=== PATIENT | female | born 1960 | race Caucasian/White ===

== ENCOUNTER 2019-04-06 15:30 | Inpatient (IN) ==
[2019-04-06] MEDS ORDERED: ALBUT/IPRATROP 3MG/0.5MG NEB 3 ML VIAL NEB ONE (15:48)
[2019-04-06] MEDS ORDERED: methylPREDNISolone 125 MG/2 ML VIAL IV STA (15:48)
[2019-04-06 16:31] LABS: Basophils # (auto) 0.05 K/uL (0-0.2); Basophils % (auto) 0.7 %; Eosinophils # (auto) 0.14 K/uL (0-0.5); Eosinophils % (auto) 2.1 %; Hematocrit (blood only) 46.9 % (37-47); Hemoglobin 14.9 g/dL (12.0-16.0); Immature Granulocytes # (auto) 0.02 K/uL (0.00-0.02); Immature Granulocytes % (auto) 0.3 %; Lymphocytes % (auto) 28.2 %; Mean Corpuscular Hemoglobin 32.8 pg (25-34); Mean Corpuscular Hgb Conc 31.8 g/dL (32-36); Mean Corpuscular Volume 103.3 fL (80-100); Mean Platelet Volume 9.3 fL (7.4-10.4); Monocytes % (auto) 10.4 %; Neutrophils # (auto) 3.93 K/uL (1.4-6.5); Neutrophils % (auto) 58.3 %; Platelet Count 179 K/uL (130-400); RDW Coefficient of Variation 12.7 % (11.5-14.5); Red Blood Count 4.54 M/uL (4.2-5.4); White Blood Count 6.74 K/uL (4.8-10.8)
[2019-04-06 16:35] LABS: Oxygen Saturation VBG 61.9 %; pH VBG 7.27 (7.36-7.41)
[2019-04-06 16:43] LABS: Partial Thromboplastin Time 26.8 Seconds (21.0-31.0); Prothrombin Time 10.1 Seconds (9.0-12.0)
[2019-04-06 16:49] LABS: Alanine Aminotransferase 24 U/L (12-78); Albumin Level 3.6 gm/dl (3.4-5.0); Aspartate Aminotransferase 14 U/L (15-37); BUN Creatinine Ratio 11.2 (10-20); Blood Urea Nitrogen 8 mg/dl (7-18); Calcium 8.6 mg/dl (8.5-10.1); Carbon Dioxide 40 mmol/L (21-32); Chloride 92 mmol/L (98-107); Est GFR (African American) 99.5; Est GFR (Non-African American) 85.9; Glucose 90 mg/dl (70-99); Potassium 4.3 mmol/L (3.5-5.1); Sodium 134 mmol/L (136-145)
[2019-04-06 16:53] LABS: Alkaline Phosphatase 81 U/L (45-117); Bilirubin,Total 0.3 mg/dl (0.2-1); Globulin 3.6 gm/dl (2.5-4.0); Total Protein 7.2 gm/dl (6.4-8.2); Troponin I < 0.015 ng/ml (0-0.045)
[2019-04-06 17:08] LABS: Influenza A virus by PCR Neg for Influ A (Neg); Influenza B virus by PCR Neg for Influ B (Neg)
--- NOTE | 2019-04-06 17:15 | XRay Report ---
XR chest 1V portable CLINICAL HISTORY: Dyspnea COMPARISON STUDY: No previous studies for comparison. FINDINGS: The bones soft tissues and hemidiaphragms are normal. The cardiomediastinal silhouette is n ormal. The lungs are clear. The pulmonary vasculature is normal. IMPRESSION: Negative chest. The above report was generated using voice recognition software. It may contain grammatical, syntax or spelling errors. Electronically signed by: Irving Cabrera M.D. 04/06/2019 5:13 PM
[2019-04-06 17:32] LABS: Appearance Urine Clear (Clear); Bilirubin Urine Negative (Negative); Blood Urine Negative (Negative); Color Urine Yellow; Glucose Urine UA Negative (Negative); Ketones Urine Negative (Negative); Leukocyte Esterase Urine Negative (Negative); Nitrite Urine Negative (Negative); Protein Urine Negative (Negative); Specific Gravity Urine 1.009 (1.000-1.030); Urobilinogen Urine Negative (Negative); pH Urine 8.5 (4.5-7.5)
[2019-04-06] MEDS ORDERED: OPTIRAY 320 125ml IV PRN (17:47)
[2019-04-06] MEDS ORDERED: cefTRIAXone SODIUM 1,000 MG in DEXTROSE 5% 50 ML IV SCH (18:16)
--- NOTE | 2019-04-06 18:16 | CT Scan Report ---
CT angio chest dissec wo/w con CT DOSE: 612.27 mGy.cm HISTORY: Dyspnea sob, copd, hx thoracic dissection, hypoxia, cp TECHNIQUE: Multiaxial CT images of the chest, abdomen, and pelvis were performed both before and afte r the intravenous administration of contrast to evaluate the aorta. Maximal intensity projection imag es were also obtained. A dose lowering technique was utilized adhering to the principles of ALARA. COMPARISON STUDY: None. FINDINGS: Limited study in the absence of prior studies for comparison given the patient's history of dissection. Emphysematous change. Apical bleb formation bilaterally. No well-defined focal infiltrate. Aortic root measures 4 cm. No evidence for true focal aneurysm or dissection. The pulmonary vasculature enhances appropriately. May be a component of mild pulmonary arterial hyper tension. IMPRESSION: 1. No evidence for aortic dissection. 2. Maximum diameter the aortic root is 4 cm. 3. Lungs are clear. 4. Diffuse emphysematous change. The above report was generated using voice recognition software. It may contain grammatical, syntax or spelling errors. Electronically signed by: Irving Cabrera M.D. 04/06/2019 6:15 PM
[2019-04-06] MEDS ORDERED: NICOTINE 14 MG/24 HR PATCH TD PRN (20:14)
[2019-04-06] MEDS ORDERED: SODIUM CHLORIDE 0.9% 1000ML 1,000 ML IV SCH (20:14)
[2019-04-06] MEDS ORDERED: ACETAMINOPHEN 325 MG TAB PO PRN (20:14)
[2019-04-06] MEDS ORDERED: ONDANSETRON INJ 2 MG/ML 2 ML VIAL IV PRN (20:14)
[2019-04-06] MEDS: DOXYCYCLINE HYCLATE 100 MG in DEXTROSE 5% 100 ML IV SCH (20:20)
--- NOTE | 2019-04-06 20:22 | History & Physical Report ---
Date of Service April 06, 2019 Assessment & Plan (1) Acute respiratory failure with hypoxia and hypercarbia: Please admit to PCU on telemetry Vital signs every 4 hours Continue budesonide/formoterol 2 puffs inhalation twice daily, continue duo nebs every 4 hours. Started empirically ceftriaxone every 24 hours and doxycycline 100 mg twice daily empirically for possible pneumonia until proven otherwise. Procalcitonin pending Patient advised to stop smoking Given nicotine patch Continue Solu-Medrol 40 mg every 8 hours IV and trend down as patient is clinically improving. DVT prophylaxis: Lovenox 40 mg subcu daily Use CPAP at night Full code Present on Admission?: Yes (2) Emphysema/COPD: As above Present on Admission?: Yes (3) Lung nodule: And a CTA of the chest there is no presence of pulmonary nodule. Would be helpful to have previous CT for comparison. Present on Admission?: Yes (4) Thoracic aortic aneurysm: Aortic root measures 4 cm. No evidence for true focal aneurysm or dissection. Present on Admission?: Yes History of Present Illness Chief Complaint: Shortness of breath Primary Care Provider: JENNA Ceballos Patient is a 58 years old female who moved to [place] recently in [place] and with past medical history of COPD/emphysema, thoracic aortic aneurysm, GERD, lung nodule, who was brought by EMS with acute respiratory failure with hypoxia and hypercarbia and a acute COPD exacerbation. In the ER patient O2 saturation on room air was dropping down to 60% on room air. Patient usually uses 2 L of oxygen at home at night. At this time patient needs 4 L of oxygen to saturate above 92%. Patient reports smoking approximately 1 pack of cigarettes per day for more than 20 years. Patient is willing to use nicotine patch. In the ER patient required BiPAP to normalize her breathing and hypoxia. She was given DuoNeb and methylprednisolone 125 mg IV. Patient said that she supposed to use CPAP at night but she does not have it at this time. Patient said her shortness of breath became more prominent this morning and probably during the day. Patient denies fever, chills, chest pain, abdominal pain, frequency, urgency. Labs are reviewed: Viral cell 6.74, hemoglobin 14.9, hematocrit 46.9, platelets 179, PT 10.1, INR 1, APTT 26.8. Blood gas pH 7.27, CO2 73, O2 32, bicarb 33. Pending procalcitonin. Chest CTA: No evidence of aortic dissection, maximal diameter of the aortic root is 4 cm. Lungs are clear. Diffuse and emphysematous changes. Chest x-ray is negative chest. Influenza A and B negative. Decision was made to admit patient to PCU telemetry for acute COPD/emphysema exacerbation and possibly to rule out pneumonia. Allergies Allergy/AdvReac Type Severity Reaction Status Date / Time Penicillins Allergy Unknown HAPPENED A Verified 04/06/19 16:26 LONG TIME AGO-CAN'T REMEMBER Home Medications Home Medications Medication Instructions Recorded Confirmed Type albuterol sulfate 2.5 mg/3 mL 2.5 mg INH Q4H PRN 03/27/19 04/06/19 History (0.083 %) solution for nebulization budesonide-formoterol HFA 160 2 puffs INH BID 03/27/19 04/06/19 History mcg-4.5 mcg/actuation aerosol inhaler umeclidinium 62.5 mcg/actuation 1 puffs INH DAILY 03/27/19 04/06/19 History blister powder for inhalation [id number] [id number] 1 tab PO DAILY 04/06/19 04/06/19 History [Women's 50 Plus Multivitamin] Past Med/Surg History Medical History Emphysema/COPD Lung nodule Cholelithiasis GERD (gastroesophageal reflux disease) COPD (chronic obstructive pulmonary disease) Thoracic aortic aneurysm Aneurysm Surgical History History of tonsillectomy and adenoidectomy Hx of cholecystectomy Family History Mother Stroke Diabetes Coronary heart disease Other Breast cancer Social History Preferred Language: Frisian Feels Safe at Home: Yes Smoking Status: Light tobacco smoker Review of Systems Review of Systems: All systems reviewed & are unremarkable except as noted in HPI & below Physical Exam Constitutional: WD/WN, vitals as above well developed and + ill appearing Eyes: PERRL, conjunctivae normal, anicteric sclerae ENMT: external ear and nose normal, oropharynx normal Neck: trachea midline, no thyromegaly Respiratory: Auscultation: + wheezes (Patient is wheezing throughout) and + b ronchovesicular breath sounds Cardiovascular: RRR, no murmur, no edema Gastrointestinal (Abdomen): normal bowel sounds, soft, nontender, no hepatosplenomegaly Musculoskeletal: no cyanosis or clubbing, extremities motor strength 5/5 Neurologic: patellar DTR's 2+ bilat, sensation intact Psychiatric: A+Ox3, euthymic affect Lymphatic: no cervical or axillary lymphadenopathy Results & Data Vital Signs (Past 12 Hours) Vital Signs Temp Pulse Resp BP Pulse Ox 04/06/19 19:35 89 22 93 04/06/19 18:30 86 15 95 04/06/19 18:22 22 96 04/06/19 18:00 101 H 16 116/66 92 04/06/19 17:30 97 H 13 128/72 87 L 04/06/19 17:00 89 28 H 121/71 98 04/06/19 16:31 98 04/06/19 16:30 82 16 115/78 98 04/06/19 16:21 20 96 04/06/19 15:33 37.0 C 104 H 26 H 133/69 84 L Code Status & VTE Plan Code Status Full code VTE Prophylaxis Plan VTE Prophylaxis will be ordered: Yes PG Care Time/CCT Total # of Minutes Spent Total Time Spent with Patient: Total time spent is greater than 50% in coordination of care (as documented) at patient's floor/unit and/or counseling patient:
--- NOTE | 2019-04-06 20:40 | Emergency Department Note ---
Entered by Chloe Longo acting as a scribe for History of Present Illness General Chief complaint: Shortness of Breath/Dyspnea Stated complaint: HYPOXIA, SOB History of Present Illness Provider complaint: dyspnea Onset (ago): week(s) 3 Pain Consistency: + other (worsening) Quality: + other (dyspnea) Relieved By: + other (denies relief from CPAP, inhaler and nebulizer) Exacerbated By: + movement Associated symptoms: + denies other symptoms (swelling and recent steroid use), + cough and + other (oxygen saturations have been in the 60s, usually wears 2L oxygen via nasal cannula during the day and 3L at night, uses CPAP, back pain, leg pain, wheezing); no fever/chills The patient is a 58 year old female who presents to the ED with complaints of worsening dyspnea that started 3 weeks ago. The patient states that her oxygen saturations have been in the 60s. The patient notes that her symptoms are exacerbated by moving around. The patient states that she usually wears 2L oxygen via nasal cannula during the day and 3L at night. The patient states that she also uses a CPAP machine, inhaler and nebulizer but nothing seems to help. The patient states that she has back pain, leg pain, a slight cough and wheezing. The patient denies a fever, swelling and recent steroid use. Home Medications Home Medications Medication Instructions Recorded Confirmed Type albuterol sulfate 2.5 mg/3 mL 2.5 mg INH Q4H PRN 03/27/19 04/06/19 History (0.083 %) solution for nebulization budesonide-formoterol HFA 160 2 puffs INH BID 03/27/19 04/06/19 History mcg-4.5 mcg/actuation aerosol inhaler umeclidinium 62.5 mcg/actuation 1 puffs INH DAILY 03/27/19 04/06/19 History blister powder for inhalation [id number]-calcium carb-K1 1 tab PO DAILY 04/06/19 04/06/19 History [Women's 50 Plus Multivitamin] Allergies Allergy/AdvReac Type Severity Reaction Status Date / Time Penicillins Allergy Unknown HAPPENED A Verified 04/06/19 16:26 LONG TIME AGO-CAN'T REMEMBER Past Med/Surg History Medical History Emphysema/COPD Lung nodule Cholelithiasis GERD (gastroesophageal reflux disease) COPD (chronic obstructive pulmonary disease) Thoracic aortic aneurysm Aneurysm Surgical History History of tonsillectomy and adenoidectomy Hx of cholecystectomy Family History Mother Stroke Diabetes Coronary heart disease Other Breast cancer Social History Preferred Language: Kosovan Feels Safe at Home: Yes Smoking Status: Light tobacco smoker Review of Systems See HPI for pertinent positives & negatives. and A total of 10 systems reviewed and were otherwise negative Physical Exam Vital Signs Vital Signs - 24 hr 04/06/19 15:33 04/06/19 16:21 04/06/19 16:30 Temperature 37.0 C Temperature Source Oral Sepsis Recent Fever Within 48 Hours No Sepsis New/Unexplained Change in Mental Status No Sepsis Action Taken by Nursing No Action Required Pulse Rate 104 H 82 Pulse Rhythm Regular Pulse Strength Normal Respiratory Rate 26 H 20 16 Respiratory Effort / Characteristics Non-Labored Spontaneous Non-Labored Spontaneous Respiratory Depth Normal Respiratory Pattern Regular Blood Pressure 133/69 115/78 Blood Pressure Mean 90 90 Blood Pressure Position Sitting Pulse Oximetry 84 L 96 98 Oxygen Delivery Method Nasal Cannula Nasal Cannula Nebulizer Oxygen Flow Rate 3 3 04/06/19 16:31 04/06/19 17:00 04/06/19 17:30 Temperature Temperature Source Sepsis Recent Fever Within 48 Hours Sepsis New/Unexplained Change in Mental Status Sepsis Action Taken by Nursing Pulse Rate 89 97 H Pulse Rhythm Pulse Strength Respiratory Rate 28 H 13 Respiratory Effort / Characteristics Respiratory Depth Respiratory Pattern Blood Pressure 121/71 128/72 Blood Pressure Mean 87 90 Blood Pressure Position Pulse Oximetry 98 98 87 L Oxygen Delivery Method Nebulizer Nebulizer Nasal Cannula Oxygen Flow Rate 8 2.5 04/06/19 18:00 Temperature Temperature Source Sepsis Recent Fever Within 48 Hours Sepsis New/Unexplained Change in Mental Status Sepsis Action Taken by Nursing Pulse Rate 101 H Pulse Rhythm Pulse Strength Respiratory Rate 16 Respiratory Effort / Characteristics Respiratory Depth Respiratory Pattern Blood Pressure 116/66 Blood Pressure Mean 82 Blood Pressure Position Pulse Oximetry 92 Oxygen Delivery Method Nasal Cannula Oxygen Flow Rate 4 GENERAL: Awake, alert, sitting up right in increased WOB HENT: Normocephalic, atraumatic. Oropharynx unremarkable. EYES: Normal conjunctiva. Sclera non-icteric. NECK: Supple. No nuchal rigidity. RESPIRATORY: Wheezes. Increased work of breathing. Diminished breath sounds. CARDIAC: Normal rate. Normal rhythm. Extremities warm and well perfused. GI: Soft, non-distended. No tenderness to palpation. RECTAL: Deferred. MUSCULOSKELETAL: Atraumatic. Chest examination reveals no tenderness LOWER EXTREMITIES: Calves are equal size bilaterally and non-tender. No edema NEURO: Normal sensorium. No sensory or motor deficits noted. No facial droop. SKIN: Warm and dry. No rash or jaundice noted. Course 1540: Past medical records reviewed. The patient was evaluated in room A10. A complete history and physical exam was performed. 1811: I discussed the patient's case with Dr. Mota [facility] Hospitalist. She will evaluate the patient for further management. Consultations Consultation #1: I discussed the patient's case with Dr. Mota [facility] Hospitalist. She will evaluate the patient for further management. Time: 18:12 Administered Medications Ceftriaxone Sodium 1,000 mg/ (Dextrose) 50 mls @ 100 mls/hr IV Q24H JAZMINE; Protocol Stop: 04/08/19 18:15 Last Infusion: 04/06/19 20:33 Dose: 0 mls/hr Documented by: [id number] Admin: 04/06/19 19:50 Dose: 100 mls/hr Documented by: [id number] Doxycycline Hyclate 100 mg/ (Dextrose) 110 mls @ 50 mls/hr IV BID JAZMINE Stop: 04/13/19 20:59 Last Admin: 04/06/19 20:20 Dose: 50 mls/hr Documented by: [id number] Sodium Chloride (Nss 1000ml) 1,000 mls @ 80 mls/hr IV .[id number] JAZMINE Stop: 04/07/19 08:43 Last Admin: 04/06/19 20:29 Dose: 80 mls/hr Documented by: [id number] Miscellaneous (Remove Nicoderm Patch) 1 ea N/A HS JAZMINE Stop: 05/06/19 20:59 Last Admin: 04/06/19 20:33 Dose: 1 ea Documented by: [id number] Discontinued Medications Albuterol (Duoneb) 12 ml NEB ONE ONE Stop: 04/06/19 15:49 Last Admin: 04/06/19 16:20 Dose: 12 ml Documented by: [id number] Ioversol (Optiray 320 125ml) 119 ml IV ONCE PRN PRN Reason: Interaction Checking Stop: 04/10/19 17:46 Last Admin: 04/06/19 17:48 Dose: 119 ml Documented by: [id number] Methylprednisolone (Solumedrol) 125 mg IV NOW STA Stop: 04/06/19 15:49 Last Admin: 04/06/19 16:28 Dose: 125 mg Documented by: [id number] Medical Decision Making Differential Diagnosis Differential diagnosis: Etiologies such as infections, reactive airway disease, COPD, pneumonia, pleural effusion, pulmonary edema, ARDS, pneumothorax, CHF, cardiac ischemia, cardiac tamponade, dysrhythmia, anemia, pulmonary embolism, musculoskeletal, gastrointestinal process, as well as others were entertained. Medical Records Attestation: I reviewed the patient's medical records. Home Medications Current Medication List: was personally reviewed by me Laboratory Data Attestation: I reviewed the patient's lab results. Result diagrams: 04/06/19 16:10 04/06/19 16:10 Lab Results 04/06/19 04/06/19 04/06/19 Range/Units 16:10 16:10 16:10 WBC 6.74 (4.8-10.8) K/uL RBC 4.54 (4.2-5.4) M/uL Hgb 14.9 (12.0-16.0) g/dL Hct 46.9 (37-47) % MCV 103.3 H (80-100) fL MCH 32.8 (25-34) pg MCHC 31.8 L (32-36) g/dL RDW Std Deviation 48.0 H (36.4-46.3) fL RDW Coeff of Hugo 12.7 (11.5-14.5) % Plt Count 179 (130-400) K/uL MPV 9.3 (7.4-10.4) fL Immature Gran % (Auto) 0.3 % Neut % (Auto) 58.3 % Lymph % (Auto) 28.2 % Refug[place] % (Auto) 10.4 % Eos % (Auto) 2.1 % Baso % (Auto) 0.7 % Immature Gran # (Auto) 0.02 (0.00-0.02) K/uL Neut # (Auto) 3.93 (1.4-6.5) K/uL Lymph # (Auto) 1.90 (1.2-3.4) K/uL [place] # (Auto) 0.70 H (0.11-0.59) K/uL Eos # (Auto) 0.14 (0-0.5) K/uL Baso # (Auto) 0.05 (0-0.2) K/uL PT 10.1 (9.0-12.0) Seconds INR 1.0 (0.9-1.1) APTT 26.8 (21.0-31.0) Seconds PTT Ratio 1.0 VBG pH (7.36-7.41) VBG pCO2 (38-50) mmHg VBG pO2 mmHg VBG HCO3 mmol/L VBG O2 Saturation % VBG Base Excess mEq/L Barometric Pressure mm/Hg Sodium 134 L (136-145) mmol/L Potassium 4.3 (3.5-5.1) mmol/L Chloride 92 L (98-107) mmol/L Carbon Dioxide 40 H (21-32) mmol/L Anion Gap 2.0 L (3-11) BUN 8 (7-18) mg/dl Creatinine 0.76 (0.6-1.2) mg/dl Est Cr Clr Drug Dosing Not Reportable Est GFR ( Amer) 99.5 Est GFR (Non-Af Amer) 85.9 BUN/Creatinine Ratio 11.2 (10-20) Glucose 90 (70-99) mg/dl Calcium 8.6 (8.5-10.1) mg/dl Total Bilirubin 0.3 (0.2-1) mg/dl AST 14 L (15-37) U/L ALT 24 (12-78) U/L Alkaline Phosphatase 81 (45-117) U/L Troponin I < 0.015 (0-0.045) ng/ml Total Protein 7.2 (6.4-8.2) gm/dl Albumin 3.6 (3.4-5.0) gm/dl Globulin 3.6 (2.5-4.0) gm/dl Albumin/Globulin Ratio 1.0 (0.9-2) Urine Color Urine Appearance (Clear) Urine pH (4.5-7.5) Ur Specific Alfred (1.000-1.030) Urine Protein (Negative) Urine Glucose (UA) (Negative) Urine Ketones (Negative) Urine Blood (Negative) Urine Nitrite (Negative) Urine Bilirubin (Negative) Urine Urobilinogen (Negative) Ur Leukocyte Esterase (Negative) Influenza Type A (PCR) (Neg) Influenza Type B (PCR) (Neg) 04/06/19 04/06/19 04/06/19 Range/Units 16:10 16:23 17:25 WBC (4.8-10.8) K/uL RBC (4.2-5.4) M/uL Hgb (12.0-16.0) g/dL Hct (37-47) % MCV (80-100) fL MCH (25-34) pg MCHC (32-36) g/dL RDW Std Deviation (36.4-46.3) fL RDW Coeff of Hugo (11.5-14.5) % Plt Count (130-400) K/uL MPV (7.4-10.4) fL Immature Gran % (Auto) % Neut % (Auto) % Lymph % (Auto) % [place] % (Auto) % Eos % (Auto) % Baso % (Auto) % Immature Gran # (Auto) (0.00-0.02) K/uL Neut # (Auto) (1.4-6.5) K/uL Lymph # (Auto) (1.2-3.4) K/uL [place] # (Auto) (0.11-0.59) K/uL Eos # (Auto) (0-0.5) K/uL Baso # (Auto) (0-0.2) K/uL PT (9.0-12.0) Seconds INR (0.9-1.1) APTT (21.0-31.0) Seconds PTT Ratio VBG pH 7.27 L (7.36-7.41) VBG pCO2 73 H (38-50) mmHg VBG pO2 32 mmHg VBG HCO3 33 mmol/L VBG O2 Saturation 61.9 % VBG Base Excess 3.0 mEq/L Barometric Pressure 728.2 mm/Hg Sodium (136-145) mmol/L Potassium (3.5-5.1) mmol/L Chloride (98-107) mmol/L Carbon Dioxide (21-32) mmol/L Anion Gap (3-11) BUN (7-18) mg/dl Creatinine (0.6-1.2) mg/dl Est Cr Clr Drug Dosing Est GFR ( Amer) Est GFR (Non-Af Amer) BUN/Creatinine Ratio (10-20) Glucose (70-99) mg/dl Calcium (8.5-10.1) mg/dl Total Bilirubin (0.2-1) mg/dl AST (15-37) U/L ALT (12-78) U/L Alkaline Phosphatase (45-117) U/L Troponin I (0-0.045) ng/ml Total Protein (6.4-8.2) gm/dl Albumin (3.4-5.0) gm/dl Globulin (2.5-4.0) gm/dl Albumin/Globulin Ratio (0.9-2) Urine Color Yellow Urine Appearance Clear (Clear) Urine pH 8.5 H (4.5-7.5) Ur Specific Alfred 1.009 (1.000-1.030) Urine Protein Negative (Negative) Urine Glucose (UA) Negative (Negative) Urine Ketones Negative (Negative) Urine Blood Negative (Negative) Urine Nitrite Negative (Negative) Urine Bilirubin Negative (Negative) Urine Urobilinogen Negative (Negative) Ur Leukocyte Esterase Negative (Negative) Influenza Type A (PCR) Neg for Influ A (Neg) Influenza Type B (PCR) Neg for Influ B (Neg) Imaging Data Radiologist's Impression: Radiology results as stated below per my review and the radiologist's interpretation:] CT angio chest dissec wo/w con CT DOSE: 612.27 mGy.cm HISTORY: Dyspnea sob, copd, hx thoracic dissection, hypoxia, cp TECHNIQUE: Multiaxial CT images of the chest, abdomen, and pelvis were performed both before and after the intravenous administration of contrast to evaluate the aorta. Maximal intensity projection images were also obtained. A dose lowering technique was utilized adhering to the principles of ALARA. COMPARISON STUDY: None. FINDINGS: Limited study in the absence of prior studies for comparison given the patient's history of dissection. Emphysematous change. Apical bleb formation bilaterally. No well-defined focal infiltrate. Aortic root measures 4 cm. No evidence for true focal aneurysm or dissection. The pulmonary vasculature enhances appropriately. May be a component of mild pulmonary arterial hypertension. IMPRESSION: 1. No evidence for aortic dissection. 2. Maximum diameter the aortic root is 4 cm. 3. Lungs are clear. 4. Diffuse emphysematous change. The above report was generated using voice recognition software. It may contain grammatical, syntax or spelling errors. Electronically signed by: Irving Cabrera M.D. 04/06/2019 6:15 PM XR chest 1V portable CLINICAL HISTORY: Dyspnea COMPARISON STUDY: No previous studies for comparison. FINDINGS: The bones soft tissues and hemidiaphragms are normal. The cardiomediastinal silhouette is normal. The lungs are clear. The pulmonary vasculature is normal. IMPRESSION: Negative chest. The above report was generated using voice recognition software. It may contain grammatical, syntax or spelling errors. Electronically signed by: Irving Cabrera M.D. 04/06/2019 5:13 PM ECG Data Attestation: I personally reviewed and interpreted this ECG as follows: Indication: SOB/dyspnea Rate (beats per minute): 82 Rhythm: normal sinus Findings: + other (normal interval, normal axis); no PVC, no ST depression, no ST elevation and no ectopy Blood Pressure Blood Pressure Findings: Normal blood pressure Blood Pressure Disposition: did not require urgent referral MDM Narrative Patient is a 58-year-old female with history of COPD, GERD, and thoracic aortic aneurysm presenting today complaining of 2 weeks of some worsening breathing particular last several days. Noted her pulse ox has been low at home into the 60's. Normally on 2 L of oxygen and 3 at night with CPAP. Has tried her home breathing treatments and utilize her daily respiratory medications/inhalers without improvement. Seen in the outpatient setting last weekend worsening over the last several days presents here. With significant wheeze increased work of breathing. Some mild upper thoraic back pain. Patient appears to be hypercarbic and hypoxic on her normal amount of oxygen. No evidence likely of pneumonia or large PE/dissection. No evidence of significant cardiac dysfunction at this time. Laboratory studies are reassuring other than the acidosis from the hy percarbia. Discussed with the patient and after dose of steroids and an hour- long DuoNeb did place she was feeling somewhat tired on BiPAP to help with her respiratory symptoms. Believe she requires admission for further respiratory care for COPD exacerbation. No evidence of fluid overload. Discussed with the hospitalist and the patient who were in agreement. Impression & Plan COPD exacerbation, Hypoxia, Acute respiratory failure with hypoxia and hypercarbia Critical Care Time Critical Care Time: Yes Total Critical Care Time: 39 I have personally spent 39 minutes of critical care time in the direct management of this patient. This includes bedside care, interpretation of diagnostic studies, and testing, discussion with consultants, patient, and family members, and other required patient management activities. This 39 minutes is in excess of all separately billable procedures. Discharge Plan Visit Data Chief Complaint: Shortness of Breath/Dyspnea Stated Complaint: HYPOXIA, SOB ED Provider: Ortiz Mejia Discharge Problem: COPD exacerbation, Hypoxia, Acute respiratory failure with hypoxia and hypercarbia Patient Disposition: Being Evaluated by Hospitalist The scribe's documentation has been prepared under my direction and personally reviewed by me in its entirety. I confirm that the note above accurately refl ects all work, treatment, procedures, and medical decision making performed by me.
[2019-04-06] MEDS: ALBUT/IPRATROP 3MG/0.5MG NEB 3 ML VIAL NEB SCH ×2 (20:44→23:09)
[2019-04-06] MEDS: BUDESONIDE/FORMOTEROL FUMARATE 160/4.5 60 PUFFS/INHALER INH SCH (21:10)
[2019-04-07] MEDS: methylPREDNISolone 40 MG in SYRINGE 0 ML IV SCH ×4 (00:13→23:50)
[2019-04-07] MEDS: ALBUT/IPRATROP 3MG/0.5MG NEB 3 ML VIAL NEB SCH ×6 (02:44→22:55)
[2019-04-07 05:48] LABS: Hematocrit (blood only) 44.4 % (37-47); Hemoglobin 14.3 g/dL (12.0-16.0); Mean Corpuscular Hemoglobin 32.9 pg (25-34); Mean Corpuscular Hgb Conc 32.2 g/dL (32-36); Mean Corpuscular Volume 102.3 fL (80-100); Mean Platelet Volume 9.1 fL (7.4-10.4); Platelet Count 183 K/uL (130-400); RDW Coefficient of Variation 12.4 % (11.5-14.5); Red Blood Count 4.34 M/uL (4.2-5.4); White Blood Count 5.54 K/uL (4.8-10.8)
[2019-04-07 06:34] LABS: Albumin Level 3.3 gm/dl (3.4-5.0); Calcium 8.4 mg/dl (8.5-10.1); Creatinine Clr Calc Pharmacy 89.4 ml/min; Est GFR (Non-African American) 95.7; Potassium 4.8 mmol/L (3.5-5.1)
[2019-04-07 06:54] LABS: Bilirubin,Total 0.3 mg/dl (0.2-1); Globulin 3.4 gm/dl (2.5-4.0); Thyroid Stimulating Hormone 0.36 uIu/ml (0.300-4.500); Total Protein 6.7 gm/dl (6.4-8.2)
[2019-04-07] MEDS: BUDESONIDE/FORMOTEROL FUMARATE 160/4.5 60 PUFFS/INHALER INH SCH ×2 (08:01→20:46)
[2019-04-07] MEDS: ENOXAPARIN INJ 40 MG/0.4 ML SYR SQ SCH ×2 (08:01→11:34)
[2019-04-07] MEDS: DOXYCYCLINE HYCLATE 100 MG in DEXTROSE 5% 100 ML IV SCH ×2 (08:12→20:44)
--- NOTE | 2019-04-07 15:24 | Hospitalist Progress Note ---
Date of Service April 07, 2019 Assessment & Plan (1) Acute respiratory failure with hypoxia and hypercarbia: Continue admit to PCU on telemetry Vital signs every 4 hours Continue budesonide/formoterol 2 puffs inhalation twice daily, continue duo nebs every 4 hours. Procalcitonin is negative. Stop ceftriaxone and only continue with doxycycline for COPD exacerbation. Discussed findings of CT lungs with the patient. Recommended follow-up in 3 months. No nodule seen on the CT of the chest. No evidence of aortic dissection. Maximum diameter of the aortic root is 4 cm. Lungs are clear. Diffuse emphysematous changes. Patient advised to stop smoking Given nicotine patch Continue Solu-Medrol 40 mg every 8 hours IV and trend down as patient is clinically improving. DVT prophylaxis: Lovenox 40 mg subcu daily Use CPAP at night Full code (2) Emphysema/COPD: As above (3) Lung nodule: And a CTA of the chest there is no presence of pulmonary nodule. Would be helpful to have previous CT for comparison. (4) Thoracic aortic aneurysm: Aortic root measures 4 cm. No evidence for true focal aneurysm or dissection. Subjective Patient seen and examined at the bedside. Her lungs are clear right now. She continues to require 4 L of oxygen to be to be able to oxygenate above 92%. Patient is usually at home at 3 L of oxygen chronically. She said that her shortness of breath is improved but she continues to have coughs. Patient is afebrile. Patient denies fever, chills, chest pain, shortness of breath, abdominal pain frequency, urgency. Review of Systems Review of Systems: All systems reviewed & are unremarkable except as noted in HPI & below Physical Exam Constitutional: WD/WN, vitals as above well developed and + ill appearing Eyes: PERRL, conjunctivae normal, anicteric sclerae ENMT: external ear and nose normal, oropharynx normal Neck: trachea midline, no thyromegaly Respiratory: normal respiratory effort, lungs clear to auscultation Auscultation: + bronchovesicular breath sounds On 4 L of oxygen Cardiovascular: RRR, no murmur, no edema Gastrointestinal (Abdomen): normal bowel sounds, soft, nontender, no hepatosplenomegaly Musculoskeletal: no cyanosis or clubbing, extremities motor strength 5/5 Skin: no rashes, warm and dry Neurologic: patellar DTR's 2+ bilat, sensation intact Psychiatric: A+Ox3, euthymic affect Lymphatic: no cervical or axillary lymphadenopathy Results & Data Vital Signs (Past 12 Hours) Vital Signs Temp Pulse Pulse Pulse Resp BP Pulse Ox 04/07/19 15:10 86 18 91 04/07/19 15:01 36.7 C 95 H 19 108/66 88 L 04/07/19 14:01 04/07/19 12:31 90 04/07/19 12:30 37.2 C 91 H 28 H 97/58 L 88 L 04/07/19 11:00 71 26 H 86 L 04/07/19 07:35 78 04/07/19 07:11 36.9 C 81 20 100/60 96 04/07/19 07:06 88 20 94 04/07/19 07:04 88 20 94 04/07/19 03:44 36.7 C 95 H 21 104/61 96 Pulse Ox 04/07/19 15:10 04/07/19 15:01 04/07/19 14:01 93 04/07/19 12:31 04/07/19 12:30 04/07/19 11:00 04/07/19 07:35 04/07/19 07:11 04/07/19 07:06 04/07/19 07:04 04/07/19 03:44 PG Care Time/CCT Total # of Minutes Spent Total Time Spent with Patient: Total time spent is greater than 50% in coordination of care (as documented) at patient's floor/unit and/or counseling patient:
[2019-04-08] MEDS: ALBUT/IPRATROP 3MG/0.5MG NEB 3 ML VIAL NEB SCH ×6 (03:33→22:59)
[2019-04-08 06:23] LABS: Hematocrit (blood only) 43.5 % (37-47); Hemoglobin 13.4 g/dL (12.0-16.0); Mean Corpuscular Hgb Conc 30.8 g/dL (32-36); Mean Corpuscular Volume 103.8 fL (80-100); Platelet Count 178 K/uL (130-400); RDW Coefficient of Variation 12.8 % (11.5-14.5); RDW Standard Deviation 48.1 fL (36.4-46.3); Red Blood Count 4.19 M/uL (4.2-5.4); White Blood Count 9.25 K/uL (4.8-10.8)
[2019-04-08 06:55] LABS: Albumin Level 3.3 gm/dl (3.4-5.0); Calcium 8.8 mg/dl (8.5-10.1); Creatinine Clr Calc Pharmacy 110.1 ml/min; Est GFR (African American) 118.3; Est GFR (Non-African American) 102.1; Potassium 4.9 mmol/L (3.5-5.1)
[2019-04-08 06:58] LABS: Bilirubin,Total 0.2 mg/dl (0.2-1); Globulin 3.2 gm/dl (2.5-4.0); Total Protein 6.5 gm/dl (6.4-8.2)
[2019-04-08] MEDS: methylPREDNISolone 40 MG in SYRINGE 0 ML IV SCH ×3 (08:26→23:01)
[2019-04-08] MEDS: ENOXAPARIN INJ 40 MG/0.4 ML SYR SQ SCH (08:26)
[2019-04-08] MEDS: BUDESONIDE/FORMOTEROL FUMARATE 160/4.5 60 PUFFS/INHALER INH SCH ×2 (08:27→20:58)
[2019-04-08] MEDS: DOXYCYCLINE HYCLATE 100 MG in DEXTROSE 5% 100 ML IV SCH ×2 (08:37→20:48)
--- NOTE | 2019-04-08 17:24 | Hospitalist Progress Note ---
Date of Service April 08, 2019 Assessment & Plan (1) Acute respiratory failure with hypoxia and hypercarbia: Continue admit to PCU on telemetry Vital signs every 4 hours Continue budesonide/formoterol 2 puffs inhalation twice daily, continue duo nebs every 4 hours. Procalcitonin is negative. Stop ceftriaxone and only continue with doxycycline for COPD exacerbation. Discussed findings of CT lungs with the patient. Recommended follow-up in 3 months. No nodule seen on the CT of the chest. No evidence of aortic dissection. Maximum diameter of the aortic root is 4 cm. Lungs are clear. Diffuse emphysematous changes. Patient advised to stop smoking Given nicotine patch Continue Solu-Medrol 40 mg every 8 hours IV and trend down as patient is clinically improving. DVT prophylaxis: Lovenox 40 mg subcu daily Use CPAP at night Full code (2) Emphysema/COPD: As above (3) Lung nodule: And a CTA of the chest there is no presence of pulmonary nodule. Would be helpful to have previous CT for comparison. (4) Thoracic aortic aneurysm: Aortic root measures 4 cm. No evidence for true focal aneurysm or dissection. Subjective Patient seen and examined at the bedside. Her lungs are clear right now. She continues to require 4 L of oxygen to be to be able to oxygenate above 92%. Patient is usually at home at 3 L of oxygen chronically. She said that her shortness of breath is improved but she continues to have coughs. Patient is afebrile. Patient denies fever, chills, chest pain, shortness of breath, abdominal pain frequency, urgency. Review of Systems Review of Systems: All systems reviewed & are unremarkable except as noted in HPI & below Physical Exam Constitutional: WD/WN, vitals as above well developed and + ill appearing Eyes: PERRL, conjunctivae normal, anicteric sclerae ENMT: external ear and nose normal, oropharynx normal Neck: trachea midline, no thyromegaly Respiratory: normal respiratory effort, lungs clear to auscultation Auscultation: + bronchovesicular breath sounds Cardiovascular: RRR, no murmur, no edema Gastrointestinal (Abdomen): normal bowel sounds, soft, nontender, no hepatosplenomegaly Musculoskeletal: no cyanosis or clubbing, extremities motor strength 5/5 Skin: no rashes, warm and dry Neurologic: patellar DTR's 2+ bilat, sensation intact Psychiatric: A+Ox3, euthymic affect Lymphatic: no cervical or axillary lymphadenopathy Results & Data Vital Signs (Past 12 Hours) Vital Signs Temp Pulse Pulse Resp BP BP Pulse Ox 04/08/19 15:30 78 16 97 04/08/19 15:29 78 16 97 04/08/19 15:10 36.8 C 81 16 124/69 93 04/08/19 14:55 70 04/08/19 11:18 37 C 79 18 113/69 99 04/08/19 11:13 78 22 98 04/08/19 11:11 78 22 98 04/08/19 07:54 36.7 C 78 18 107/68 97 04/08/19 07:53 68 04/08/19 07:09 81 20 94 04/08/19 07:08 81 20 94 PG Care Time/CCT Total # of Minutes Spent Total Time Spent with Patient: Total time spent is greater than 50% in coordination of care (as documented) at patient's floor/unit and/or counseling patient:
[2019-04-09] MEDS: ALBUT/IPRATROP 3MG/0.5MG NEB 3 ML VIAL NEB SCH ×6 (03:39→21:52)
[2019-04-09 06:22] LABS: Hematocrit (blood only) 42.3 % (37-47); Hemoglobin 13.7 g/dL (12.0-16.0); Mean Corpuscular Hemoglobin 33.1 pg (25-34); Mean Corpuscular Hgb Conc 32.4 g/dL (32-36); Mean Corpuscular Volume 102.2 fL (80-100); Mean Platelet Volume 9.2 fL (7.4-10.4); Platelet Count 186 K/uL (130-400); RDW Coefficient of Variation 12.6 % (11.5-14.5); RDW Standard Deviation 47.4 fL (36.4-46.3); Red Blood Count 4.14 M/uL (4.2-5.4); White Blood Count 8.99 K/uL (4.8-10.8)
[2019-04-09 06:54] LABS: Albumin Level 3.1 gm/dl (3.4-5.0); BUN Creatinine Ratio 20.8 (10-20); Calcium 8.9 mg/dl (8.5-10.1); Creatinine Clr Calc Pharmacy 110.1 ml/min; Est GFR (African American) 118.3; Est GFR (Non-African American) 102.1; Potassium 4.7 mmol/L (3.5-5.1)
[2019-04-09 06:56] LABS: Albumin Globulin Ratio 0.9 (0.9-2); Bilirubin,Total 0.2 mg/dl (0.2-1); Globulin 3.3 gm/dl (2.5-4.0); Total Protein 6.4 gm/dl (6.4-8.2)
[2019-04-09] MEDS: BUDESONIDE/FORMOTEROL FUMARATE 160/4.5 60 PUFFS/INHALER INH SCH (08:39)
[2019-04-09] MEDS: ENOXAPARIN INJ 40 MG/0.4 ML SYR SQ SCH (08:40)
[2019-04-09] MEDS: DOXYCYCLINE HYCLATE 100 MG in DEXTROSE 5% 100 ML IV SCH ×2 (09:29→21:24)
[2019-04-09] MEDS: methylPREDNISolone 40 MG in SYRINGE 0 ML IV SCH ×3 (10:29→23:36)
--- NOTE | 2019-04-09 15:45 | Hospitalist Progress Note ---
Date of Service April 09, 2019 Assessment & Plan (1) Acute respiratory failure with hypoxia and hypercarbia: Patient appears to have stage III to stage IV COPD. Now she is an acute exacerbation. Continue admit to PCU on telemetry Pulmonary Vital signs every 4 hours Continue budesonide inhalation twice daily, continue duo nebs every 4 hours. Continue with doxycycline for COPD exacerbation. Discussed findings of CT lungs with the patient. Recommended follow-up in 3 months. No nodule seen on the CT of the chest. No evidence of aortic dissection but there is a maximum diameter of the aortic root of 4 cm. recommneded follow up in his office in 1 year and ECHOcardiogram at that time. Lungs are clear with diffuse emphysematous changes. Patient advised to stop smoking Given nicotine patch Continue Solu-Medrol 40 mg every 8 hours IV and trend down as patient is clinically improving. DVT prophylaxis: Lovenox 40 mg subcu daily Use CPAP at night Full code (2) Emphysema/COPD: As above (3) Lung nodule: And a CTA of the chest there is no presence of pulmonary nodule. Would be helpful to have previous CT for comparison. (4) Thoracic aortic aneurysm: Aortic root measures 4 cm. No evidence for true focal aneurysm or dissection. Subjective Patient seen and examined at the bedside. Her wheezing is slowly improving. She continues to require 4 L of oxygen to be to be able to oxygenate above 92% at rest and oxygenation drops to 80 % on 4 L days while walking. Patient is usually at home at 3 L of oxygen chronically. She came from [place] to join her son at [facility]. She said that her shortness of breath.Patient is afebrile. Patient denies fever, chills, chest pain,abdominal pain frequency, urgency. Review of Systems Review of Systems: All systems reviewed & are unremarkable except as noted in HPI & below Physical Exam Constitutional: WD/WN, vitals as above well developed and + ill appearing Eyes: PERRL, conjunctivae normal, anicteric sclerae ENMT: external ear and nose normal, oropharynx normal Neck: trachea midline, no thyromegaly Respiratory: normal respiratory effort, lungs clear to auscultation Auscultation: + bronchovesicular breath sounds Cardiovascular: RRR, no murmur, no edema Gastrointestinal (Abdomen): normal bowel sounds, soft, nontender, no hepatosplenomegaly Musculoskeletal: no cyanosis or clubbing, extremities motor strength 5/5 Skin: no rashes, warm and dry Neurologic: patellar DTR's 2+ bilat, sensation intact Psychiatric: A+Ox3, euthymic affect Lymphatic: no cervical or axillary lymphadenopathy Results & Data Vital Signs (Past 12 Hours) Vital Signs Temp Pulse Pulse Resp BP BP Pulse Ox 04/09/19 15:34 79 04/09/19 15:26 84 18 98 04/09/19 15:19 84 18 95 04/09/19 11:29 80 80 15 98 04/09/19 11:11 36.7 C 76 20 119/90 93 04/09/19 07:52 66 04/09/19 07:15 71 71 22 97 04/09/19 06:56 36.9 C 72 16 112/68 97 04/09/19 03:58 36.7 C 79 20 124/65 96 04/09/19 03:44 80 18 95 PG Care Time/CCT Total # of Minutes Spent Total Time Spent with Patient: Total time spent is greater than 50% in coordination of care (as documented) at patient's floor/unit and/or counseling patient:
[2019-04-09] MEDS ORDERED: AZITHROMYCIN 250 MG TAB PO STA (16:58)
--- NOTE | 2019-04-09 17:08 | Pulmonary Consultation ---
Date of Consultation April 09, 2019 Assessment & Plan (1) Acute on chronic respiratory failure with hypoxia and hypercapnia: -- Acute on chronic hypoxic hypercapnic respiratory failure Secondary to COPD exacerbation Procalcitonin negative, continue with IV steroids, inhaled therapy, antibiotic as anti-inflammatory therapy No clear infiltrate appreciated on the CT chest Continue with BiPAP nightly and as needed shortness of breath We will start azithromycin 500 mg daily. Patient's QTC is 392. Will add Mucomyst nebulized to help bring up the phlegm. Patient already getting IV steroids, increasing the dose of inhaled budesonide will not make a difference right now. --Severe emphysema/COPD Gold class D Patient is already on triple therapy at home. She denies any symptoms of chronic bronchitis. Patient was diagnosed with COPD at the age of 49, she has greater than [id number] smoking history and is an active smoker She is still young to have this severe emphysema, she does not know any history of lung disease in the family Given that she is young with severe emphysema, will order alpha-1 antitrypsin level and phenotype Patient should be followed up as an outpatient for PFTs, 6-minute walk test, Tracey score, 2D echo to see if the patient is a candidate for lung transplant. Needs to have yearly flu vaccine. Should be up-to-date with Prevnar and Pneumovax. Given her chronic hypercapnia even though she is compliant with CPAP at home. She might be a candidate for a Trilogy We will see how she does in the next couple of days and decide whether she needs to be discharged on a Trilogy Given her severe COPD chronic azithromycin can also be considered to prevent exacerbation. Patient already had one exacerbation in August which required hospitalization. Patient is on 3 L of home O2 right now but on ambulation she is needing more. She might end up needing more oxygen prior to discharge. Will benefit from pulmonary rehab prior to discharge. --Active tobacco use Advised patient to quit. Patient has history of depression but never had any suicidal ideation. Can try bupropion with nicotine patch to help her quit if the patient is willing. --Metabolic alkalosis Likely as a compensation to chronic respiratory acidosis Monitor We will get an ABG tomorrow to see if patient was given acetazolamide to decrease the bicarb which will improve her central respiratory drive. (2) COPD exacerbation: (3) Emphysema/COPD: (4) Thoracic aortic aneurysm: (5) Tobacco dependence due to cigarettes: History of Present Illness Reason for Consultation: COPD Attending Physician: Sherly Raza MD History of Present Illness 58-year-old female who is originally from [place] visiting her son with past medical history of COPD/emphysema diagnosed at the age of 49, chronic hypoxic respiratory failure on home O2, obstructive sleep apnea, depression, thoracic aortic aneurysm, GERD comes to the hospital with complaints of shortness of breath going on for the last couple of days progressively getting worse. It was associated with chest tightness. Patient felt that she is not getting enough air. Patient has been coughing but unable to bring any phlegm. She feels that she is unable to bring the head up. Patient usually gets short of breath even while doing her day-to-day activities. Denied any upper respiratory infection recent. Patient states she usually gets tearing from the eyes after she uses her CPAP. Denies any fever or chills. No headache, no dizziness, no palpitation, no diaphoresis, no nausea or vomiting. No dysuria, no hematuria, did complain of loose stools, no hematochezia. No weight loss, no night sweats. Denies any suicidal ideation. Never tried to hurt herself. Social history: Patient started smoking at the age of 13 has cut down to couple of cigarettes a day now, there was a time when patient was smoking more than 4 cigars a day, greater than 80 pack years smoking history, denies any illicit drug use, social alcohol Used to work as a maid cleaning offices. States that once when she bought a car there was antifreeze leaking from the car and thinks it has a lot to do with her breathing. Denies any allergies to any pets. No poultry at home. No family history of any lung problems. Nobody in the family had any emphysematous lung disease that she knows of. Allergies Allergy/AdvReac Type Severity Reaction Status Date / Time Penicillins Allergy Unknown HAPPENED A Verified 04/06/19 16:26 LONG TIME AGO-CAN'T REMEMBER Home Medications Home Medications Medication Instructions Recorded Confirmed Type albuterol sulfate 2.5 mg/3 mL 2.5 mg INH Q4H PRN 03/27/19 04/06/19 History (0.083 %) solution for nebulization budesonide-formoterol HFA 160 2 puffs INH BID 03/27/19 04/06/19 History mcg-4.5 mcg/actuation aerosol inhaler umeclidinium 62.5 mcg/actuation 1 puffs INH DAILY 03/27/19 04/06/19 History blister powder for inhalation [id number] 1 tab PO DAILY 04/06/19 04/06/19 History [Women's 50 Plus Multivitamin] Patient History Medical History Emphysema/COPD Lung nodule Cholelithiasis GERD (gastroesophageal reflux disease) COPD (chronic obstructive pulmonary disease) Thoracic aortic aneurysm Aneurysm Surgical History History of tonsillectomy and adenoidectomy Hx of cholecystectomy Family History Mother Stroke Diabetes Coronary heart disease Other Breast cancer Social History Preferred Language: Polish Communication Ability: Effective Post Anesthesia Nurse Required: No Beliefs That Will Affect Care: None Current Living Situation: Family Current Living Situation Comment: lives with son Feels Safe at Home: Yes Smoking Status: Former smoker Tobacco Type: cigarettes ; Hx Alcohol Use: No Hx Substance Use: No Review of Systems Review of Systems: All systems reviewed & are unremarkable except as noted in HPI & below Physical Exam Physical Exam: Constitutional: No acute distress HEENT: EOMI, PERRLA Respiratory system: Decreased air entry bilaterally, no wheeze, no rhonchi, no crackles CVS: S1-S2 positive, no murmurs or gallops Abdomen: Soft, nontender, nondistended, positive bowel sounds x4 Extremities: +2 pulses bilaterally radialis/ dorsalis pedis, no edema, no cyanosis Neuro: Awake alert oriented x3 Psych: Normal mood and affect G/U: No Schulte At the time of examination patient was saturating at 92% at rest with heart rate of 91 on 3 L nasal cannula. Skin: no rashes, warm and dry Lymphatic: no cervical or axillary lymphadenopathy Results & Data Vital Signs (Past 12 Hours) Vital Signs Temp Pulse Pulse Resp BP BP Pulse Ox 04/09/19 15:46 36.5 C 81 15 117/74 95 10/30/19 15:34 79 04/09/19 15:26 84 18 98 04/09/19 15:19 84 18 95 04/09/19 11:29 80 80 15 98 04/09/19 11:11 36.7 C 76 20 119/90 93 04/09/19 07:52 66 04/09/19 07:15 71 71 22 97 04/09/19 06:56 36.9 C 72 16 112/68 97 04/09/19 06:04 04/09/19 06:04 04/06/19 16:10 VBG pH 7.27 L VBG pCO2 73 H VBG pO2 32 VBG HCO3 33 VBG O2 Saturation 61.9 VBG Base Excess 3.0 Diagnostic Findings CTA chest personally reviewed: Severe centrilobular emphysema appreciated mostly in the upper lobes, no clear nodules appreciated. No clear infiltrate appreciated. PG Care Time/CCT Total # of Minutes Spent Total Time Spent with Patient: Total time spent is greater than 50% in coordination of care (as documented) at patient's floor/unit and/or counseling patient:
[2019-04-09 17:56] LABS: Base Excess ABG 9.2 mEq/L (-9-1.8); HCO3 ABG 37 mmol/L (19-24); Oxygen Saturation ABG 92.2 % (90-95); PCO2 ABG 64 mmHg (35-46); PO2 ABG 60 mm/Hg (80-95); pH ABG 7.38 (7.35-7.45)
[2019-04-09 18:00] LABS: Allen Test Pos (Pos)
[2019-04-09] MEDS: BUDESONIDE 0.25 MG/2 ML VIAL (PULMICORT) NEB SCH (18:59)
[2019-04-09] MEDS: buPROPion HCl 100 MG TABLET PO SCH (19:01)
[2019-04-09] MEDS: ACETYLCYSTEINE 10% INHAL SOLN 4 ML **DISPENSED BY RESP. INH SCH (21:51)
[2019-04-10] MEDS: ALBUT/IPRATROP 3MG/0.5MG NEB 3 ML VIAL NEB SCH ×6 (03:58→23:15)
[2019-04-10 05:50] LABS: Hematocrit (blood only) 43.6 % (37-47); Hemoglobin 13.5 g/dL (12.0-16.0); Immature Granulocytes # (auto) 0.03 K/uL (0.00-0.02); Immature Granulocytes % (auto) 0.4 %; Lymphocytes # (auto) 0.44 K/uL (1.2-3.4); Lymphocytes % (auto) 6.1 %; Mean Corpuscular Hemoglobin 32.5 pg (25-34); Mean Corpuscular Volume 104.8 fL (80-100); Mean Platelet Volume 9.3 fL (7.4-10.4); Monocytes # (auto) 0.42 K/uL (0.11-0.59); Monocytes % (auto) 5.8 %; Neutrophils # (auto) 6.35 K/uL (1.4-6.5); Neutrophils % (auto) 87.7 %; Platelet Count 175 K/uL (130-400); RDW Coefficient of Variation 12.9 % (11.5-14.5); RDW Standard Deviation 48.9 fL (36.4-46.3); Red Blood Count 4.16 M/uL (4.2-5.4); White Blood Count 7.24 K/uL (4.8-10.8)
[2019-04-10 06:19] LABS: Albumin Level 3.2 gm/dl (3.4-5.0); BUN Creatinine Ratio 24.1 (10-20); Calcium 8.6 mg/dl (8.5-10.1); Creatinine Clr Calc Pharmacy 114.8 ml/min; Est GFR (African American) 119.7; Est GFR (Non-African American) 103.3; Potassium 4.6 mmol/L (3.5-5.1)
[2019-04-10 06:21] LABS: Bilirubin,Total 0.2 mg/dl (0.2-1); Globulin 3.2 gm/dl (2.5-4.0); Total Protein 6.4 gm/dl (6.4-8.2)
[2019-04-10] MEDS: BUDESONIDE 0.25 MG/2 ML VIAL (PULMICORT) NEB SCH ×2 (07:10→19:15)
[2019-04-10] MEDS: ACETYLCYSTEINE 10% INHAL SOLN 4 ML **DISPENSED BY RESP. INH SCH ×2 (07:10→19:15)
[2019-04-10] MEDS: methylPREDNISolone 40 MG in SYRINGE 0 ML IV SCH ×3 (08:16→23:37)
[2019-04-10] MEDS: buPROPion HCl 100 MG TABLET PO SCH ×2 (08:16→19:55)
[2019-04-10] MEDS: ENOXAPARIN INJ 40 MG/0.4 ML SYR SQ SCH (08:17)
[2019-04-10] MEDS: DOXYCYCLINE HYCLATE 100 MG in DEXTROSE 5% 100 ML IV SCH (08:18)
[2019-04-10] MEDS: TIOTROPIUM BROMIDE 5 PUFF/90 MCG INH INH SCH (13:52)
--- NOTE | 2019-04-10 14:42 | Pulmonology Progress Note ---
Date of Service April 10, 2019 Assessment & Plan (1) Acute on chronic respiratory failure with hypoxia and hypercapnia: -- Acute on chronic hypoxic hypercapnic respiratory failure Secondary to COPD exacerbation Procalcitonin negative, continue with IV steroids, inhaled therapy, antibiotic as anti-inflammatory therapy No clear infiltrate appreciated on the CT chest Continue with BiPAP nightly and as needed shortness of breath On azithromycin 500 mg daily. Patient's QTC is 392. Mucomyst nebulized to help bring up the phlegm. Patient already getting IV steroids, increasing the dose of inhaled budesonide will not make a difference right now. --Severe emphysema/COPD Gold class D Patient is already on triple therapy at home. She denies any symptoms of chronic bronchitis. Patient was diagnosed with COPD at the age of 49, she has greater than [id number] smoking history and is an active smoker She is still young to have this severe emphysema, she does not know any history of lung disease in the family Given that she is young with severe emphysema, will order alpha-1 antitrypsin level and phenotype Patient should be followed up as an outpatient for PFTs, 6-minute walk test, Tracey score, 2D echo to see if the patient is a candidate for lung transplant. Needs to have yearly flu vaccine. Should be up-to-date with Prevnar and Pneumovax. Given her chronic hypercapnia even though she is compliant with CPAP at home. She might be a candidate for a Trilogy Given her severe COPD chronic azithromycin can also be considered to prevent exacerbation. Patient already had one exacerbation in August which required hospitalization. Patient is on 3 L of home O2 right now but on ambulation she is needing more. She might end up needing more oxygen prior to discharge. Will benefit from pulmonary rehab prior to discharge. Due to chronic respiratory failure consequent to COPD, patient now requires a noninvasive home ventilator. Bilevel therapy with and without a rate would be ineffective as patient requires a volume targeted mode. Ventilation is required to decrease work of breathing and improve pulmonary status. Interruption of ventilator support would lead to decline of health status. NIMV settings should be AVAPS-AE; Breath rate: auto; Inspiratory time:auto; Sigh: off; Tidal Volume: 350-450, PS min: 4-10 PS max: 12-20; EPAP min: 6-10; EPAP max: 10-16; AVAPS rate: 14 during sleep and as needed --Active tobacco use Advised patient to quit. Patient has history of depression but never had any suicidal ideation. Can try bupropion with nicotine patch to help her quit if the patient is willing. --Metabolic alkalosis Likely as a compensation to chronic respiratory acidosis Monitor AB.38/68/60/92.2% on 2.5 L nasal cannula. (2) COPD exacerbation: (3) Emphysema/COPD: (4) Thoracic aortic aneurysm: (5) Tobacco dependence due to cigarettes: Subjective Patient seen and examined at bedside. No acute distress, no evidence events overnight. Patient feels little better than yesterday. Shortness of breath is improved. Bringing up phlegm now which is clear. Denies any nausea or vomiting. Good appetite. No headache, no dizziness, no palpitation. No dysuria. At the time of examination patient was saturating 96% on 4 L of nasal cannula. Went down to 3 L as goal saturation for the patient is 88 to 92%. Review of Systems Review of Systems: All systems reviewed & are unremarkable except as noted in HPI & below Physical Exam Physical Exam: Constitutional: No acute distress HEENT: EOMI, PERRLA Respiratory system: Decreased air entry bilaterally, no wheeze, no rhonchi, no crackles CVS: S1-S2 positive, no murmurs or gallops Abdomen: Soft, nontender, nondistended, positive bowel sounds x4 Extremities: +2 pulses bilaterally radialis/ dorsalis pedis, no edema, no cyanosis Neuro: Awake alert oriented x3 Psych: Normal mood and affect G/U: No Schulte Skin: no rashes, warm and dry Lymphatic: no cervical or axillary lymphadenopathy Results & Data Vital Signs (Past 12 Hours) Vital Signs Temp Pulse Pulse Resp BP BP Pulse Ox 04/10/19 12:43 36.2 C L 86 20 129/70 92 04/10/19 11:20 84 18 90 04/10/19 08:00 68 04/10/19 07:56 36.8 C 87 28 H 128/76 97 04/10/19 07:12 68 26 H 96 04/10/19 07:11 68 26 H 96 04/10/19 04:30 74 17 98 04/10/19 03:58 91 H 20 93 04/10/19 03:47 36.6 C 73 20 112/73 95 04/10/19 05:35 10/31/19 05:35 04/06/19 04/09/19 16:10 17:34 ABG pH 7.38 ABG pCO2 64 H ABG pO2 60 L ABG HCO3 37 H ABG O2 Saturation 92.2 ABG Base Excess 9.2 H VBG pH 7.27 L VBG pCO2 73 H VBG pO2 32 VBG HCO3 33 VBG O2 Saturation 61.9 VBG Base Excess 3.0 PG Care Time/CCT Total # of Minutes Spent Total Time Spent with Patient: Total time spent is greater than 50% in coordination of care (as documented) at patient's floor/unit and/or counseling patient:
--- NOTE | 2019-04-10 18:18 | Hospitalist Progress Note ---
Date of Service April 10, 2019 Assessment & Plan (1) Acute respiratory failure with hypoxia and hypercarbia: Patient appears to have stage III to stage IV COPD. Now she is an acute exacerbation. Continue admit to PCU on telemetry Appreciate pulmonary recommendations: Continue azithromycin 500 mg daily(MWF), Mucomyst nebulized to help bring up the phlegm. Continue IV steroids continue budesonide as per pulmonary recommendation. Follow-up studies ordered by pulmonary alpha-1 antitrypsin level and phenotype. Give flu vaccine. Patient should be followed up as an outpatient for PFTs, 6-minute walk test, Tracey score, 2D echo to see if the patient is a candidate for lung transplant. Also needs to get on discharge Prevnar and Pneumovax.Will benefit from pulmonary rehab prior to discharge.She needs to be evaluated for Trilogy. Vital signs every [address] hours Discussed findings of CT lungs with the patient. Recommended follow-up in 3 months. No nodule seen on the CT of the chest. No evidence of aortic dissection but there is a maximum diameter of the aortic root of [address]Simo mcguire recommended follow up in his office in 1 year and Echocardiogram at that time. Lungs are clear with diffuse emphysematous changes. Patient advised to stop smoking Given nicotine patch Continue Solu-Medrol 40 mg every 8 hours IV and trend down as patient is clinically improving. DVT prophylaxis: Lovenox 40 mg subcu daily Use CPAP at night Full code (2) Emphysema/COPD: As above (3) Lung nodule: And a CTA of the chest there is no presence of pulmonary nodule. Would be helpful to have previous CT for comparison. (4) Thoracic aortic aneurysm: Aortic root measures 4 cm. No evidence for true focal aneurysm or dissection. Subjective Patient seen and examined at the bedside.She continues to require 4 L of oxygen to be to be able to oxygenate above 92% at rest and oxygenation drops to 80 % on 4 L days while walking. Patient is usually at home at 3 L of oxygen chronically. She came from [place] to join her son at [facility]. Patient continues to be short of breath. Patient is afebrile. Patient denies fever, c hills, chest pain,abdominal pain frequency, urgency. Review of Systems Review of Systems: All systems reviewed & are unremarkable except as noted in HPI & below Physical Exam Constitutional: WD/WN, vitals as above well developed and + ill appearing Eyes: PERRL, conjunctivae normal, anicteric sclerae ENMT: external ear and nose normal, oropharynx normal Neck: trachea midline, no thyromegaly Respiratory: normal respiratory effort, lungs clear to auscultation Auscultation: + bronchovesicular breath sounds Cardiovascular: RRR, no murmur, no edema Gastrointestinal (Abdomen): normal bowel sounds, soft, nontender, no hepatosplenomegaly Musculoskeletal: no cyanosis or clubbing, extremities motor strength 5/5 Skin: no rashes, warm and dry Neurologic: patellar DTR's 2+ bilat, sensation intact Psychiatric: A+Ox3, euthymic affect Lymphatic: no cervical or axillary lymphadenopathy Results & Data Vital Signs (Past 12 Hours) Vital Signs Temp Pulse Pulse Resp BP BP Pulse Ox 04/10/19 15:43 75 14 95 04/10/19 15:38 68 04/10/19 15:08 37.0 C 75 14 123/73 94 04/10/19 12:43 36.2 C L 86 20 129/70 92 04/10/19 11:20 84 18 90 04/10/19 08:00 68 04/10/19 07:56 36.8 C 87 28 H 128/76 97 04/10/19 07:12 68 26 H 96 04/10/19 07:11 68 26 H 96 PG Care Time/CCT Total # of Minutes Spent Total Time Spent with Patient: Total time spent is greater than 50% in coordination of care (as documented) at patient's floor/unit and/or counseling patient:
[2019-04-11] MEDS: ALBUT/IPRATROP 3MG/0.5MG NEB 3 ML VIAL NEB SCH ×4 (02:57→15:30)
[2019-04-11 06:08] LABS: Hematocrit (blood only) 46.6 % (37-47); Hemoglobin 14.4 g/dL (12.0-16.0); Immature Granulocytes # (auto) 0.03 K/uL (0.00-0.02); Immature Granulocytes % (auto) 0.4 %; Lymphocytes # (auto) 0.52 K/uL (1.2-3.4); Lymphocytes % (auto) 7.3 %; Mean Corpuscular Hemoglobin 32.4 pg (25-34); Mean Corpuscular Hgb Conc 30.9 g/dL (32-36); Mean Platelet Volume 9.4 fL (7.4-10.4); Monocytes % (auto) 5.6 %; Neutrophils # (auto) 6.21 K/uL (1.4-6.5); Neutrophils % (auto) 86.7 %; Platelet Count 191 K/uL (130-400); RDW Coefficient of Variation 12.7 % (11.5-14.5); RDW Standard Deviation 48.7 fL (36.4-46.3); Red Blood Count 4.44 M/uL (4.2-5.4); White Blood Count 7.16 K/uL (4.8-10.8)
[2019-04-11 06:25] LABS: Albumin Level 3.3 gm/dl (3.4-5.0); BUN Creatinine Ratio 21.9 (10-20); Calcium 8.9 mg/dl (8.5-10.1); Creatinine Clr Calc Pharmacy 96.9 ml/min; Est GFR (African American) 113.2; Est GFR (Non-African American) 97.7; Potassium 4.6 mmol/L (3.5-5.1)
[2019-04-11 06:30] LABS: Bilirubin,Total 0.3 mg/dl (0.2-1); Globulin 3.4 gm/dl (2.5-4.0); Total Protein 6.7 gm/dl (6.4-8.2)
[2019-04-11] MEDS: BUDESONIDE 0.25 MG/2 ML VIAL (PULMICORT) NEB SCH (06:51)
[2019-04-11] MEDS: ACETYLCYSTEINE 10% INHAL SOLN 4 ML **DISPENSED BY RESP. INH SCH (06:52)
[2019-04-11] MEDS: methylPREDNISolone 40 MG in SYRINGE 0 ML IV SCH ×2 (08:34→17:08)
[2019-04-11] MEDS: buPROPion HCl 100 MG TABLET PO SCH (08:35)
[2019-04-11] MEDS: ENOXAPARIN INJ 40 MG/0.4 ML SYR SQ SCH (08:35)
[2019-04-11] MEDS: TIOTROPIUM BROMIDE 5 PUFF/90 MCG INH INH SCH (08:36)
[2019-04-11] MEDS ORDERED: AZITHROMYCIN 250 MG TAB PO SCH ×2 (09:00)
--- NOTE | 2019-04-11 11:33 | Pulmonology Progress Note ---
Date of Service April 11, 2019 Assessment & Plan (1) Acute on chronic respiratory failure with hypoxia and hypercapnia: -- Acute on chronic hypoxic hypercapnic respiratory failure Secondary to COPD exacerbation Procalcitonin negative, on IV steroids, inhaled therapy, antibiotic as anti- inflammatory therapy No clear infiltrate appreciated on the CT chest Continue with BiPAP nightly and as needed shortness of breath On azithromycin 500 mg Sunday patient's QTC is 392. Mucomyst nebulized to help bring up the phlegm. Patient already getting IV steroids, increasing the dose of inhaled budesonide will not make a difference right now. From pulmonary perspective patient is back at her baseline. Cleared for discharge from pulmonary site on prednisone 40 mg for 3 days followed by 20 mg for 2 days. Please provide extra prednisone to the patient just in case if she needs it in future. Needs to follow-up with pulmonary after discharge. --Severe emphysema/COPD Gold class D Patient is already on triple therapy at home. She denies any symptoms of chronic bronchitis. Patient was diagnosed with COPD at the age of 49, she has greater than 65-wagk-myam smoking history and is an active smoker She is still young to have this severe emphysema, she does not know any history of lung disease in the family Given that she is young with severe emphysema, will order alpha-1 antitrypsin level and phenotype Patient should be followed up as an outpatient for PFTs, 6-minute walk test, Tracey score, 2D echo to see if the patient is a candidate for lung transplant. Needs to have yearly flu vaccine. Should be up-to-date with Prevnar and Pn eumovax. Given her chronic hypercapnia even though she is compliant with CPAP at home. She might be a candidate for a Trilogy Given her severe COPD chronic azithromycin can also be considered to prevent exacerbation. Patient already had one exacerbation in August which required hospitalization. Patient is on 3 L of home O2 right now but on ambulation she is needing more. She might end up needing more oxygen prior to discharge. Will benefit from pulmonary rehab after discharge. Due to chronic respiratory failure consequent to COPD, patient now requires a noninvasive home ventilator. Bilevel therapy with and without a rate would be ineffective as patient requires a volume targeted mode. Ventilation is required to decrease work of breathing and improve pulmonary status. Interruption of ventilator support would lead to decline of health status. NIMV settings should be AVAPS-AE; Breath rate: auto; Inspiratory time:auto; Sigh: off; Tidal Volume: 350-450, PS min: 4-10 PS max: 12-20; EPAP min: 6-10; EPAP max: 10-16; AVAPS rate: 14 during sleep and as needed --Active tobacco use Advised patient to quit. Patient has history of depression but never had any suicidal ideation. Can try bupropion with nicotine patch to help her quit if the patient is will ing. --Metabolic alkalosis Likely as a compensation to chronic respiratory acidosis Monitor AB.38/68/60/92.2% on 2.5 L nasal cannula. (2) COPD exacerbation: (3) Emphysema/COPD: (4) Thoracic aortic aneurysm: (5) Tobacco dependence due to cigarettes: Subjective Patient seen and examined at bedside. No acute distress, no adverse events overnight. Patient feeling much better today. Shortness of breath is improved. Denies any chest pain, no headache, no nausea, no vomiting. Tolerating diet. No diarrhea. No dizziness. Patient saturating 92% on 2 L nasal cannula at rest. Review of Systems Review of Systems: All systems reviewed & are unremarkable except as noted in HPI & below Physical Exam Physical Exam: Constitutional: No acute distress HEENT: EOMI, PERRLA Respiratory system: Decreased air entry bilaterally, no wheeze, no rhonchi, no crackles CVS: S1-S2 positive, no murmurs or gallops Abdomen: Soft, nontender, nondistended, positive bowel sounds x4 Extremities: +2 pulses bilaterally radialis/ dorsalis pedis, no edema, no cyanosis Neuro: Awake alert oriented x3 Psych: Normal mood and affect G/U: No Schulte Skin: no rashes, warm and dry Lymphatic: no cervical or axillary lymphadenopathy Results & Data Vital Signs (Past 12 Hours) Vital Signs Temp Pulse Pulse Pulse Resp BP Pulse Ox 04/11/19 11:01 75 16 93 04/11/19 08:00 69 04/11/19 07:00 36.4 C L 64 20 113/70 97 04/11/19 06:54 67 67 24 97 04/11/19 03:39 36.5 C 70 18 112/64 90 04/11/19 02:59 72 72 23 94 04/10/19 23:37 70 70 18 96 04/10/19 23:36 36.9 C 74 20 109/66 95 04/11/19 05:27 04/11/19 05:27 PG Care Time/CCT Total # of Minutes Spent Total Time Spent with Patient: Total time spent is greater than 50% in coordination of care (as documented) at patient's floor/unit and/or counseling patient:
--- NOTE | 2019-04-11 15:59 | Discharge Summary ---
Date of Service April 11, 2019 Admission HPI Per Admitting Provider Patient is a 58 years old female who moved to [place] recently in [place] and with past medical history of COPD/emphysema, thoracic aortic aneurysm, GERD, lung nodule, who was brought by EMS with acute respiratory failure with hypoxia and hypercarbia and a acute COPD exacerbation. In the ER patient O2 saturation on room air was dropping down to 60% on room air. Patient usually uses 2 L of oxygen at home at night. At this time patient needs 4 L of oxygen to saturate above 92%. Patient reports smoking approximately 1 pack of cigarettes per day for more than 20 years. Patient is willing to use nicotine patch. In the ER patient required BiPAP to normalize her breathing and hypoxia. She was given DuoNeb and methylprednisolone 125 mg IV. Patient said that she supposed to use CPAP at night but she does not have it at this time. Patient said her shortness of breath became more prominent this morning and probably during the day. Patient denies fever, chills, chest pain, abdominal pain, frequency, urgency. Labs are reviewed: Viral cell 6.74, hemoglobin 14.9, hematocrit 46.9, platelets 179, PT 10.1, INR 1, APTT 26.8. Blood gas pH 7.27, CO2 73, O2 32, bicarb 33. Pending procalcitonin. Chest CTA: No evidence of aortic dissection, maximal diameter of the aortic root is 4 cm. Lungs are clear. Diffuse and emphysematous changes. Chest x-ray is negative chest. Influenza A and B negative. Decision was made to admit patient to PCU telemetry for acute COPD/emphysema exacerbation and possibly to rule out pneumonia. Principal Diagnosis COPD exacerbation Discharge Exam Constitutional WD/WN, vitals as above Eyes EOM intact bilaterally; no conjunctival abnormality ENMT external ear and nose normal, oropharynx normal Neck trachea midline, no thyromegaly normal visual inspection Respiratory normal respiratory effort, lungs clear to auscultation no respiratory distress Cardiovascular RRR, no murmur, no edema Gastrointestinal (Abdomen) Inspection/Auscultation: abdomen normal to inspection; abdomen not distended Musculoskeletal no cyanosis or clubbing, extremities motor strength 5/5 Skin no rashes, warm and dry Neurologic moves all extremities and awake Psychiatric Orientation: alert, oriented to person and cooperative Discharge Data Allergies Allergy/AdvReac Type Severity Reaction Status Date / Time Penicillins Allergy Unknown HAPPENED A Verified 04/06/19 16:26 LONG TIME AGO-CAN'T REMEMBER Consultations 04/06/19 18:04 ED Decision to Admit Stat 04/06/19 20:14 Consult Case Management - Discharge Planning Routine 04/09/19 15:38 Consult Pulmonary Rehabilitation Routine Consult Pulmonology Routine 04/10/19 14:42 Consult Case Management - Discharge Planning Routine Ordered Studies 04/06/19 15:47 CT angio chest dissec wo/w con Stat Hospital Course (1) Acute respiratory failure with hypoxia and hypercarbia: Patient appears to have Gold Stage III to stage IV COPD. Admitted for exacerbation. - Discharged on 5-day taper of steroids. No indication of bacterial infection, so no abx on discharge (apart from below). - Discharged on azithromycin 500 mg -- for anti-inflammatory effect. - Pulmonary alpha-1 antitrypsin level and phenotype pending. - Arranging Trilegy for outpatient. - Follow up with pulm and PCP. - On discharge, her O2 sat was good with 2L at rest. On ambulation, she dropped to the high 80s, even with up to 6L NC. Her O2 was prescribed at a higher dose. (2) Emphysema/COPD: As above (3) Lung nodule: And a CTA of the chest there is no presence of pulmonary nodule. Would be helpful to have previous CT for comparison. (4) Thoracic aortic aneurysm: Aortic root measures 4 cm. No evidence for dissection. - Follow up in 1 year with echo and with vascular surgery. Total Time Total Time Spent Total Time Spent (In Minutes): 35 Discharge Plan Discharge Items Patient Disposition: Home - Self-Care Reason For Visit: ACUTE HYPOXIA AND HYPERCARBIC RESP FAILURE Discharge Diagnosis: COPD exacerbation Activity: Resume your previous activity Non-emergency contact: Primary Care Provider and Dry Wall Nailer Call non-emergency contact if: your symptoms worsen and your temperature is above 101 [place] [facility] [place] - 04/17/19 3:15 pm (Please, [facility] for pulmonary function testing on April 17 at 3:15 pm. *The office is located in [address] of [facility] [place] [employer] [facility]. This is the big building located next to this hospital. If you need to change this appointment, call the office at [phone].) Isha Crowley CRNP [Primary Care Provider] - 04/15/19 2:00 pm (Please, follow up with Isha WEST on SundayApril 15 at 2:00 pm. *If you need to change this appointment, call the office at [phone].) Param Carlos MD [Physician] - 04/23/19 9:00 am (Please, follow up at [facility] Pulmonology Office with Dr. Carlos on SundayApril 23 at 9:00 am. *The office is located in [address] of [facility], next to the hospital. *If you need to change this appointment, call the office at [phone].) Jaquan Lopez MD [Physician] - (Please, follow up with Dr. Lopez in approximately 1 year. *There was some dilation of your aorta and he recommends that you have a ech ocardiogram, at that time. The office is located at [address] [place] [address] in [place], next to [facility]. A nurse will be calling you with the appointment information. If you have any questions, call the office at [phone].) Diet: Regular Addtl Attending Provider Instructions: Please take prednisone 30 mg (3 tablets) on Sunday, Sunday, and Sunday, then 20 mg (2 tablets) on Sunday and Sunday. Please follow up with your PCP and the lung doctor (chain forming machine operator) to follow up on your testing. Please, please refrain from smoking as even a single cigarette can cause a COPD flare. Pending Studies at Discharge: Yes (Alpha-antitripsyn) Stand-Alone Forms: My [facility] [email or web address], Smoking Cessation Medications and DC Order Prescriptions: New azithromycin [Zithromax] 250 mg Tablet 500 mg PO MoWeFr@0900 Qty: 30 RF: 0 nicotine 7 mg/24 hr Patch 24 Hour 14 mg transdermal QAM Qty: 14 RF: 0 bupropion HCl 100 mg Tablet 100 mg PO BID Qty: 60 RF: 0 prednisone 10 mg tablet 30 mg PO DAILY Qty: 20 RF: 0 Continued Symbicort 160-4.5 mcg/actuation HFA aerosol inhaler 2 puffs INH BID RF: 0 Incruse Ellipta 62.5 mcg/actuation blister with device 1 puffs INH DAILY RF: 0 Women's 50 Plus Multivitamin 400 mcg-500 mg calcium-20 mcg Tablet 1 tab PO DAILY RF: 0 albuterol sulfate 2.5 mg /3 mL (0.083 %) solution for nebulization 2.5 mg INH Q4H PRN (Reason: Shortness Of Breath) Qty: 30 RF: 0 Discharge Orders: Discharge Order (Routine); Ordered 04/11/19 Ordered By: Darian Porter Admission Data Admit Date/Time: 04/06/19 18:16 Attending Provider: Darian Porter Admit Provider: Sherly Raza Primary Care Provider: Isha Crowley Other Providers: Param Carlos ; Darian Porter ; [facility] Other Interventions: Discharge Summary Assessment (RN) Last Done: 04/11/19 15:09
[2019-04-15 20:18] LABS: Alpha 1 Antitrypsin 139 MG/DL (83-199)
== END 2019-04-11 15:40 | disposition home or self-care (01) | DRG 190 ==
LOC: ED 15:30 → SUATTDRO 18:16 → 2S 18:16